=== PATIENT | male | born 1950 | race Caucasian/White ===

== ENCOUNTER 2016-11-30 14:26 | Outpatient (CLI) | payer MEDICARE | END 2016-11-30 14:27 | disposition home or self-care (01) | LOC: NAV LABSP 14:26 | PROVIDERS: ATTEND Family Medicine | DX: A09 Infectious gastroenteritis and colitis, unspecified (principal) | CPT/HCPCS: 83630; 87015; 87045; 87046; 87177; 87206; 87324; 87449; 87899 ==